=== PATIENT | male | born 1975 | race Two or more races ===

== ENCOUNTER → 2019-04-24 09:44 | Outpatient (CLI) | payer OTHER ==
[~2019-04-24 09:44] MED LIST: KETO10TA2 PO; MIRALAX17 GM PO; NEURONTIN300 MG PO; TYLENOL ARTHRI650 MG PO; ULTRAM50 MG PO; ZANTAC150 M3 PO
== END | disposition home or self-care (01) ==
LOC: EDBD 09:44 → LAB 09:44
DX: R10.84 Generalized abdominal pain (principal); I10 Essential (primary) hypertension

== ENCOUNTER 2019-05-02 07:00 | Day surgery (SDC) | payer OTHER ==
[2019-05-02] MEDS ORDERED: TYLENOL ARTHRI650 MG PO (13:53)
[2019-05-02] MEDS ORDERED: MIRALAX17 GM PO (13:53)
[2019-05-02] MEDS ORDERED: ULTRAM50 MG PO (13:53)
[2019-05-02] MEDS ORDERED: NEURONTIN300 MG PO (13:53)
[2019-05-02] MEDS ORDERED: KETO10TA2 PO (13:53)
[2019-05-02] MEDS ORDERED: ZANTAC150 M3 PO (13:53)
== END 2019-05-02 18:10 | disposition home or self-care (01) ==
LOC: CIR.AMB 07:00 → ADM 09:15 → CIR.AMB 09:15 → ADM 17:45 → CIR.AMB 18:10
DX: K43.6 Other and unspecified ventral hernia with obstruction, without gangrene (principal)